=== PATIENT | female | born 1970 | race Caucasian/White ===

== ENCOUNTER 2018-08-27 12:53 | Outpatient (RCR) | payer MEDICAID, SELFPAY | END 2018-08-27 16:00 | disposition home or self-care (01) | LOC: PT.CARL 12:53 | PROVIDERS: Visit Provider Nurse Practitioner Family | DX: G44.209 Tension-type headache, unspecified, not intractable (principal) | CPT/HCPCS: 97163 ==

== ENCOUNTER → 2018-10-07 13:32 | Outpatient (CLI) | payer MEDICAID, SELFPAY ==
[2018-10-07 14:06] LABS: INR 1.01 (0.9-1.1); Prothrombin Time 10.4 seconds (9.4-11.8)
[2018-10-07 14:16] LABS: Basophils % 0.6 % (0.1-2.0); Eosinophils # 0.2 K/mm3 (0.0-0.4); Eosinophils % 3.2 % (0.1-12.0); Hematocrit 34.3 % (37.0-47.0); Hemoglobin 11.5 g/dL (12.2-16.2); Lymphocytes # 1.8 K/mm3 (0.7-4.5); Lymphocytes % 38.1 % (10-50); Mean Corpuscular HGB Conc 33.5 g/dL (31.8-35.4); Mean Corpuscular Hemoglobin 32.8 pg (27.0-31.2); Mean Corpuscular Volume 97.9 fl (81-99); Mean Platelet Volume 8.2 fl (7.4-10.4); Monocytes # 0.2 K/mm3 (0.1-1.0); Monocytes % 3.6 % (1.7-9.3); Neutrophils # 2.5 K/mm3 (1.8-7.8); Neutrophils % 54.4 % (37.0-80.0); Platelet Count 239 K/mm3 (142-424); Red Blood Count 3.51 M/mm3 (4.20-5.40); Red Cell Distribution Width 14.6 % (11.5-17.5); White Blood Count 4.6 K/mm3 (4.8-10.8)
[2018-10-07 15:16] LABS: Alanine Aminotransferase 38 U/L (12-78); Albumin Level 3.9 gm/dL (3.4-5.0); Albumin/Globulin Ratio 1.3 (1.1-1.8); Alkaline Phosphatase 64 U/L (46-116); Anion Gap 17.2 mEq/L (5-15); Aspartate Amino Transferase 24 U/L (15-37); Bilirubin,Total 0.2 mg/dL (0.2-1.0); Blood Urea Nitrogen 13 mg/dL (7-18); Carbon Dioxide 24 mmol/L (21.0-32.0); Chloride 103 mmol/L (98-107); Creatinine,Serum 0.68 mg/dL (0.55-1.02); Estimated Glomerular Filt Rate 93 ml/min (>60); GFR (African American) 113 ML/MIN (>60); Glucose 127 mg/dL (74-106); Potassium 4.2 mmoL/L (3.5-5.1); Sodium 140 mmol/L (136-145); Total Protein,Serum 6.9 gm/dL (6.4-8.2)
[2018-10-08 06:15] LABS: Hep A Ab, IgM Negative (Negative); Hepatitis B Core Antibody IgM Positive (Negative); Hepatitis B Surface Antigen Negative (Negative)
[2018-10-08 09:43] LABS: Hepatitis C Antibody <0.1 s/co ratio (0.0-0.9)
== END ==
PROVIDERS: Visit Provider Surgery
DX: K80.20 Calculus of gallbladder without cholecystitis without obstruction (principal)
CPT/HCPCS: 36415; 80053; 80074; 85025; 85610

== ENCOUNTER → 2019-05-19 12:17 | Outpatient (CLI) | payer MEDICAID, SELFPAY ==
--- NOTE | 2019-05-19 12:25 | CT_ITS ---
PROCEDURE: CT HEAD/BRAIN WO CON CLINICAL INDICATION: MIGRAINE W/O AURA Increasing frequency of headaches COMPARISON: No exams were available for comparison TECHNIQUE: Axial images obtained. All CT scans at the facility use one or more dose reduction, viz: automated exposure control, ma/kV adjustment per patient size (including targeted exams where dose is matched to indication, i.e. head), or iterative reconstruction technique. FINDINGS: No midline shift, mass effect, intracranial hemorrhage, hydrocephalus, or extra-axial fluid collection is evident. The calvarium has an unremarkable appearance. No mastoid effusion. No sinus air-fluid level. IMPRESSION: No acute intracranial finding Dictated by: Zaire Isbell MD 05/19/2019 12:53 Electronically signed by Zaire Isbell MD in [place] 05/19/2019 12:53
== END ==
PROVIDERS: PCP Nurse Practitioner; Visit Provider Nurse Practitioner
DX: G43.009 Migraine without aura, not intractable, without status migrainosus (principal)
CPT/HCPCS: 70450

== ENCOUNTER 2019-09-16 17:55 | Inpatient (IN) ==
[2019-09-16 18:29] LABS: Basophils % 0.1 % (0.1-2.0); Eosinophils # 0.1 K/mm3 (0.0-0.4); Eosinophils % 0.6 % (0.1-12.0); Hematocrit 34.1 % (37.0-47.0); Hemoglobin 11.3 g/dL (12.2-16.2); Lymphocytes # 0.9 K/mm3 (0.7-4.5); Lymphocytes % 7.6 % (10-50); Mean Corpuscular HGB Conc 33.1 g/dL (31.8-35.4); Mean Corpuscular Volume 99.3 fl (81-99); Mean Platelet Volume 8.5 fl (7.4-10.4); Monocytes # 0.3 K/mm3 (0.1-1.0); Monocytes % 2.3 % (1.7-9.3); Neutrophils # 10.7 K/mm3 (1.8-7.8); Neutrophils % 89.4 % (37.0-80.0); Platelet Count 297 K/mm3 (142-424); Red Blood Count 3.43 M/mm3 (4.20-5.40); Red Cell Distribution Width 14.5 % (11.5-17.5)
[2019-09-16 18:38] LABS: Albumin Level 4.3 g/dl (3.5-5.0); Albumin/Globulin Ratio 1.3 (1.1-1.8); Anion Gap 15.5 mEq/L (5-15); Bilirubin,Total 0.4 mg/dl (0.2-1.3); Calcium 9.5 mg/dl (8.4-10.2); Globulin 3.4 g/dL (1.3-3.2); Total Protein,Serum 7.7 g/dl (6.3-8.2)
--- NOTE | 2019-09-16 19:02 | Emergency Department Note ---
ED Disposition Clinical Impression: Pneumonia Qualifiers: Pneumonia type: due to unspecified organism Disposition: Admitted As Inpatient Condition on Discharge: Good - Critical Care Critical Care Time: No Attestation: On 09/16/19, the high probability of a clinically significant, sudden or life threatening deterioration of the following system(s) required my full and direct attention, intervention and personal management. The time I documented below is in addition to time spent performing reported procedures but includes the following listed in this critical care notation. Medical Decision Making - Peyman Inquiry Pt receiving controlled substance: No Peyman was queried for this patient: No Vital Signs: 09/16/19 17:57 09/16/19 19:11 09/16/19 19:57 Temperature 98.3 F Temperature Source Oral Pulse Rate 101 H Pulse Rate [Radial] 122 H 108 H Respiratory Rate 20 16 Blood Pressure 118/66 Blood Pressure [Right Arm] 130/89 107/65 L Blood Pressure Mean [Right Arm] 102 79 Blood Pressure Source Automatic Cuff Blood Pressure Source [Right Arm] Automatic Cuff Automatic Cuff Blood Pressure Position Sitting Blood Pressure Position [Right Arm] Sitting Sitting 02 Sat by Pulse Oximetry 89 L 92 L Oxygen Delivery Method Room Air Nasal Cannula Nasal Cannula Oxygen Flow Rate (LPM) 2 2 09/16/19 20:00 Temperature Temperature Source Pulse Rate Pulse Rate [Radial] Respiratory Rate Blood Pressure Blood Pressure [Right Arm] Blood Pressure Mean [Right Arm] Blood Pressure Source Blood Pressure Source [Right Arm] Blood Pressure Position Blood Pressure Position [Right Arm] 02 Sat by Pulse Oximetry Oxygen Delivery Method Nasal Cannula Oxygen Flow Rate (LPM) 2 - Lab Data Lab Results 09/16/19 18:10: WBC 12.0 H, RBC 3.43 L, Hgb 11.3 L, Hct 34.1 L, MCV 99.3 H, MCH 32.9 H, MCHC 33.1, RDW 14.5, Plt Count 297, MPV 8.5, Neut % (Auto) 89.4 H, Lymph % (Auto) 7.6 L, [place] % (Auto) 2.3, Eos % (Auto) 0.6, Baso % (Auto) 0.1, Neut # (Auto) 10.7 H, Lymph # (Auto) 0.9, [place] # (Auto) 0.3, Eos # (Auto) 0.1, Baso # (Auto) 0.0, Total Counted 100, Neutrophils % (Manual) 84 H, Lymphocytes % (Manual) 13, Monocytes % (Manual) 3, Platelet Estimate Normal, RBC Morphology Normal 09/16/19 18:10: Sodium 139, Potassium 3.5, Chloride 109 H, Carbon Dioxide 18 L, Anion Gap 15.5 H, BUN 15, Creatinine 0.70, Estimated Creat Clear 128, Estimated GFR 90, Est GFR ( Amer) 109 D, Glucose 142 H, Calcium 9.5, Total Bilirubin 0.4, AST 41 H, ALT 66, Alkaline Phosphatase 97, Total Protein 7.7, Albumin 4.3, Globulin 3.4 H, Albumin/Globulin Ratio 1.3 09/16/19 18:10: Lactate 1.6 Result diagrams: 09/18/19 06:00 09/18/19 06:00 Orders (Tests/Meds): ED MEDICATIONS Generic Name Dose Route Start Last Admin Trade Name Freq PRN Reason Stop Dose Admin Acetaminophen 650 mg 09/16/19 19:53 09/18/19 00:18 Acetaminophen 325mg Tab PO 10/16/19 19:52 650 mg Q4HP PRN Administration As Needed for Fever or Pain Albuterol Sulfate 1 - 2 puffs 09/16/19 20:33 09/18/19 18:02 Proventil-Hfa 90mcg/Puff Inhaler 10/16/19 20:32 2 puffs Q4HP PRN Administration Shortness Of Breath Or Wheezing Albuterol/Ipratropium 3 ml 09/16/19 20:39 Duoneb 3ml [facility] 10/16/19 20:38 Q1HP PRN soa Albuterol/Ipratropium 3 ml 09/17/19 00:00 09/18/19 18:40 Duoneb 3ml [facility] 10/17/19 00:00 3 ml Q6RT MENG Administration Amitriptyline HCl 75 mg 09/17/19 21:00 09/17/19 20:44 Elavil 50mg Tablet PO 10/17/19 20:59 75 mg HS MENG Administration Amlodipine Besylate 5 mg 09/17/19 09:00 09/18/19 08:33 Norvasc 5mg Tablet PO 10/17/19 08:59 5 mg DAILY MENG Administration Fluoxetine HCl 60 mg 09/17/19 09:00 09/18/19 08:33 Prozac 20mg Capsule PO 10/17/19 08:59 60 mg DAILY MENG Administration Gabapentin 600 mg 09/16/19 21:00 09/18/19 13:18 Neurontin 600mg Tablet PO 10/16/19 20:59 600 mg TID MENG Administration Sodium Chloride 1,000 mls @ 50 mls/hr 09/16/19 19:53 09/18/19 14:46 Sod Chlor 0.9% 1000ml Bag IV 10/16/19 19:52 50 mls/hr .Q20H MENG Administration Azithromycin 500 mg/ Sodium 250 mls @ 250 mls/hr 09/17/19 21:00 09/17/19 21:48 Chloride IV 10/01/19 20:59 250 mls/hr Q24H MENG Administration Protocol Ceftriaxone Sodium 1 gm/ 50 mls @ 100 mls/hr 09/17/19 20:00 09/17/19 20:43 Sodium Chloride IV 10/01/19 19:59 100 mls/hr Q24H MENG Administration Protocol Ibuprofen 400 mg 09/16/19 19:53 09/18/19 17:59 Motrin 400mg Tablet PO 10/16/19 19:52 400 mg Q6HP PRN Administration Mild Pain Nystatin 500,000 unit 09/17/19 09:00 09/18/19 17:46 Nystatin Susp 500,000 Units/5ml Udc PO 10/17/19 08:59 500,000 unit QID MENG Administration Ondansetron HCl 4 mg 09/17/19 13:41 09/18/19 13:31 Zofran 4mg/2ml Vial IV 10/17/19 13:40 4 mg Q6HP PRN Administration Nausea Pantoprazole Sodium 40 mg 09/17/19 21:00 09/17/19 20:45 Protonix 40mg Tablet PO 10/17/19 20:59 40 mg HS MENG Administration Propranolol HCl 40 mg 09/17/19 09:00 09/18/19 08:34 Inderal 20mg Tablet PO 10/17/19 08:59 40 mg BID MENG Administration Sodium Chloride 3 ml 09/17/19 14:21 Sodium Chloride 3% 15ml Neb IH 10/17/19 14:20 ONCE PRN INDUCE SPUTUM COLLECTION Sodium Chloride 10 ml 09/18/19 13:53 Saline Flush 10ml Syringe IV 10/18/19 13:52 NEEDED PRN Maintain IV Site Tetracycl/Hydrocort/Nystatin/Diphen 15 ml 09/17/19 09:00 09/18/19 17:46 Magic Mouthwash;240ml [place] PO 10/17/19 08:59 15 ml QID MENG Administration Topiramate 50 mg 09/17/19 09:00 09/18/19 08:33 Topamax 25mg Tablet PO 10/17/19 08:59 50 mg DAILY MENG Administration Discontinued Medications Generic Name Dose Route Start Last Admin Trade Name Freq PRN Reason Stop Dose Admin Amitriptyline HCl 75 mg 09/16/19 23:50 Elavil 25mg Tablet PO 10/16/19 23:49 HSP PRN CHEST PAIN Ceftriaxone Sodium 1 gm/ 50 mls @ 100 mls/hr 09/16/19 19:53 09/16/19 20:53 Sodium Chloride IV 09/30/19 19:52 Not Given Q24H MENG Protocol Azithromycin 500 mg/ Sodium 250 mls @ 250 mls/hr 09/16/19 19:53 09/16/19 21:15 Chloride IV 09/30/19 19:52 250 mls/hr Q24H MENG Administration Protocol Ceftriaxone Sodium 1 gm/ 50 mls @ 100 mls/hr 09/16/19 20:00 09/16/19 20:40 Sodium Chloride IV 09/30/19 19:59 100 mls/hr Q24H MENG Administration Protocol Miscellaneous 1 unit 09/16/19 19:53 09/16/19 22:58 Aerochamber/Optihaler MC 09/16/19 19:54 Not Given ONCE ONE ORDERS Category Date Time Status Blood Culture Stat Micro 09/16/19 18:10 Results General Adult HPI - General Chief complaint: Shortness of Breath/Dyspnea Stated complaint: Blisters in mouth, SOA Time Seen by Provider: 09/16/19 19:00 Mode of Arrival: Ambulatory Source of Information: Patient Limitations: No Limitations Description of Symptoms (Recalled from ER Triage Doc. by RN): states she was here the other day and was diagnosed with Pneumonia. States she is not getting better and has even started getting blisters in the back of her throat. - History of Present Illness HPI narrative: 48-year-old female. She was in the emergency room 2 days ago and was diagnosed with pneumonia, received Rocephin and Zithromax and she was discharged with Levaquin as antibiotic p.o. that she is not getting any better. Shortness of breath with minimal exertion. History of asthma. Also she is a chronic smoker 1 pack/day. Coughing continuously. Also she has a temperature between 97 and 101. Denied any nausea or vomiting or any chest pain. Main complaints of cough and shortness of breath with minimal exertion. Dr. Hendricks saw her in the emergency room 2 days ago and suggested to admit her but she said she will try outpatient treatment but now she is not feeling any better. Onset (ago): day(s) Associated symptoms: fever/chills, headaches, loss of appetite, malaise, shortness of breath, weakness - Related Data Home Medications Medication Instructions Recorded Confirmed propranolol 80 mg capsule,extended 80 mg PO DAILY 01/16/18 09/17/19 release 24 hr Ipratropium/Albuterol Sulfate 2 sprays INHALATION BID 09/10/18 09/17/19 [Combivent Respimat Inh] Omeprazole [Omeprazole 20mg 20 mg PO DAILY 09/10/18 09/17/19 Capsule] gabapentin 600 mg tablet 600 mg PO TID 09/20/18 09/17/19 Albuterol Sulfate [Albuterol HFA 1 - 2 puffs IH Q4-6H PRN 09/16/19 09/16/19 Inhaler] Almotriptan Malate 12.5 mg PO DIRECTED 09/16/19 09/16/19 Amitriptyline HCl 75 mg PO HS 09/16/19 09/16/19 Topiramate 1 tab PO DAILY 09/16/19 09/16/19 levoFLOXacin [Levaquin 500mg 500 mg PO DAILY 09/16/19 09/16/19 tab] Amlodipine Besylate [Amlodipine 5 mg PO DAILY 09/17/19 09/17/19 5mg tab] Fluoxetine HCl 60 mg PO DAILY 09/17/19 09/17/19 Previous Rx's Medication Instructions Recorded predniSONE [Prednisone 20mg 40 mg PO DAILY 3 Days #12 tab 09/17/19 Tab] Cefdinir [Omnicef 300mg Capsule] 600 mg PO DAILY 6 Days #12 cap 09/18/19 Nystatin [Nystatin Susp 500,000 500,000 unit PO QID 5 Days #120 ml 09/18/19 Units/5mL Udc] Allergies Allergy/AdvReac Type Severity Reaction Status Date / Time levofloxacin [From Levaquin] AdvReac Intermediate mouth sores Verified 09/17/19 07:52 sumatriptan [From Imitrex] AdvReac Mild Vomiting Verified 09/16/19 21:04 [facility] History - Hepatitis A Screen Drug use history?: No High risk sexual behaviors?: No History of sexually transmitted infection?: No Currently employed?: No Childcare worker?: No Do you have indoor plumbing?: Yes Do you have electricity?: Yes Attestation statement:: This patient has been screened for Hepatitis A risk factors. Medical History: Reports:: Asthma, Depression, Gastroesophageal Reflux Disease(GERD), Hepatitis, Hypertension Denies:: Cancer, Diabetes Mellitus Type 1, Diabetes Mellitus Type 2, Internal Pacemaker, MRSA, Seizures Other Medical History: Denies: Blood Transfusion Reaction Other Surgeries: Yes: Cholecystectomy, Hysterectomy-Total, Tubal Ligation. No: Pacemaker Amputation: No Fractures: No - Social History Educational Level: Completed High School Smoking Status: Current every day smoker Tobacco Type: cigarettes # Packs/Day (cigarettes): 1 Alcohol Intake: never Substance Use Type: denies use Occupational Status: other Housing: house - Psychiatric History Pschychiatric History:: Reports:: Depression Family Hx:: Diabetes, Cancer ROS Obtained: Yes All systems reviewed & no additional complaints - Constitutional Constitutional: Reports system reviewed and no additional complaints, except as docu, Reports body ache, Reports chills, Reports fatigue, Reports fever(s), Reports lethargy - Eyes Eyes: Reports system reviewed and no additional complaints, except as docu - ENT Ears, Nose, Mouth, and Throat: Reports system reviewed and no additional complaints, except as docu - Cardiovascular Cardiovascular: Reports system reviewed and no additional complaints, except as docu - Respiratory Respiratory: Yes system reviewed and no additional complaints, except as docu, Yes cough, Yes dyspnea, Yes dyspnea on exertion - Gastrointestinal Gastrointestingal: Reports: system reviewed and no additional complaints, except as docu - Genitourinary Male Genitourinary: Reports system reviewed and no additional complaints, except as docu Female Genitourinary: Reports system reviewed and no additional complaints, except as docu - Musculoskeletal Musculoskeletal: Reports system reviewed and no additional complaints, except as docu - Integumentary/Breasts Skin/Breast: Reports system reviewed and no additional complaints, except as docu - Neurologic Neurologic: Reports system reviewed and no additional complaints, except as docu - Endocrine Endocrine: Reports system reviewed and no additional complaints, except as docu - Hematologic/Lymphatic Henatologic/Lymphatic: Reports system reviewed and no additional complaints, except as docu - Allergic/Immunologic Allergic/Immunologic: Reports system reviewed and no additional complaints, except as docu Physical Exam - General General appearance: alert, in no apparent distress - Head Head exam: atraumatic, normocephalic, normal inspection - Eye Eye exam: Present: normal appearance, PERRL, EOMI - ENT ENT exam: Present: normal exam, normal oropharynx, mucous membranes moist, TM's normal bilaterally, normal external ear exam - Neck Neck exam: Present: normal inspection, full ROM, trachea midline. Absent: meningismus, lymphadenopathy - Chest Chest inspection: Present: normal inspection, symmetric chest wall rise. Absent: tenderness - Respiratory Respiratory exam: Present: normal lung sounds bilaterally, wheezes. Absent: respiratory distress - Cardiovascular Cardiovascular exam: Present: regular rate, normal rhythm. Absent: JVD - Abdominal Exam Abdominal exam: Present: soft, normal bowel sounds. Absent: distention, tenderness, guarding - Extremities Exam Extremities exam: Present: normal inspection, full ROM, normal capillary refill. Absent: calf tenderness - Back Exam Back exam: Present: normal inspection. Absent: tenderness - Neurological Exam Neurological exam: Present: alert, oriented X3 - Psychiatric Psychiatric exam: Present: normal affect, normal mood - Skin Skin exam: Present: warm, dry, intact, normal color - Lymphatic Lymphatic Findings: no adenopathy
[2019-09-16 19:21] LABS: Lymphocytes % 13 % (10-50); Monocytes % 3 % (2-9); Neutrophils % 84 % (42-76); RBC Morphology Normal; Total Cells Counted 100
--- NOTE | 2019-09-17 07:18 | Pharmacy Consult Notes ---
[facility] Pharmacy VTE Monitoring - Patient Demographics Admission date: 09/16/19 Report Date: 09/17/19 Time: 07:17 Allergies/Adverse Reactions: Patient Allergies levofloxacin [From Levaquin] Allergy (Intermediate, Verified 09/16/19 21:04) mouth sores sumatriptan [From Imitrex] Adverse Reaction (Mild, Verified 09/16/19 21:04) Vomiting Height: 1.55 m Weight: 81.703 kg Patient Problems: Current Active Problems Pneumonia (Acute) - VTE Risk Labs: VTE Related Lab Results Hgb 11.3 g/dL (12.2-16.2) L 09/16/19 18:10 Hct 34.1 % (37.0-47.0) L 09/16/19 18:10 Plt Count 297 K/mm3 (142-424) 09/16/19 18:10 BUN 15 mg/dl (7-17) 09/16/19 18:10 Creatinine 0.70 mg/dl (0.52-1.04) 09/16/19 18:10 Estimated Creat Clear 128 mL/min (50-200) 09/16/19 18:10 Was VTE Risk Assessment Performed: Yes VTE Score: 6 VTE Risk Level: Moderate Risk - Prophylaxis VTE Prophylaxis Ordered?: Yes Types of VTE Prophylaxis: TEDS Knee High Location of Applied Device: Bilateral Lower Extremeties
[2019-09-17 07:40] LABS: Basophils % 0.1 % (0.1-2.0); Eosinophils % 0.5 % (0.1-12.0); Hematocrit 30.2 % (37.0-47.0); Lymphocytes # 1.3 K/mm3 (0.7-4.5); Lymphocytes % 15.7 % (10-50); Mean Corpuscular HGB Conc 32.1 g/dL (31.8-35.4); Mean Corpuscular Volume 99.3 fl (81-99); Mean Platelet Volume 8.7 fl (7.4-10.4); Monocytes # 0.3 K/mm3 (0.1-1.0); Monocytes % 2.9 % (1.7-9.3); Neutrophils # 6.9 K/mm3 (1.8-7.8); Neutrophils % 80.7 % (37.0-80.0); Platelet Count 255 K/mm3 (142-424); Red Blood Count 3.04 M/mm3 (4.20-5.40); Red Cell Distribution Width 14.3 % (11.5-17.5); White Blood Count 8.5 K/mm3 (4.8-10.8)
[2019-09-17 07:48] LABS: Anion Gap 12.5 mEq/L (5-15)
--- NOTE | 2019-09-17 07:48 | History & Physical Report ---
*Admission Date: 09/16/19 *Chief complaint: Cough/congestion *History of present illness: 48-year-old white female with history of major depression, migraine headaches and significant smoking history, who came to the emergency department early last week with a chief complaint of cough and congestion, diagnosed with acute bronchitis and given levofloxacin which has not helped over the last couple of days. Came back to the emergency department late last night, found to have relative hypoxia. Found to have cough and congestion and infiltrate on chest x- ray, admitted to hospital with failure of outpatient therapy. [facility] History I have reviewed the patient's past medical history: Yes Medical History: Reports:: Asthma, Depression, Gastroesophageal Reflux Disease(GERD), Hepatitis, Hypertension Denies:: Cancer, Diabetes Mellitus Type 1, Diabetes Mellitus Type 2, Internal Pacemaker, MRSA, Seizures *Have you ever received a pneumonia vaccine?: No *Have you received a flu vaccine this season?: Yes Other Medical History: Denies: Blood Transfusion Reaction Laterality Cases: Bilateral: Tonsillectomy Other Surgeries: Yes: Cholecystectomy, Hysterectomy-Total, Tubal Ligation. No: Pacemaker Amputation: No Fractures: No - *Social History Educational Level: Completed High School Smoking Status: Current every day smoker Tobacco Type: cigarettes # Packs/Day (cigarettes): 1 Alcohol Intake: current Alcohol Intake Frequency:: other Substance Use Type: marijuana *Occupational Status:: unemployed Housing: other Household Members: other *Travel in the last 8 weeks: None - Psychiatric History Pschychiatric History:: Reports:: Depression Family Hx:: Diabetes, Cancer Review of Systems - Review of Systems Review of systems:: pertinent systems reviewed and negative unless documented below Pulmonary symptoms noted. Otherwise 10 point review of systems negative with the exception of some oral mucosal lesions that she attributes to levofloxacin Meds Home Medications Medication Instructions Recorded Confirmed Type propranolol 80 mg capsule,extended 80 mg PO DAILY 01/16/18 09/17/19 History release 24 hr Ipratropium/Albuterol Sulfate 2 puff PO QIDP PRN 09/10/18 09/17/19 History [Combivent Respimat Inh] Omeprazole [Omeprazole 20mg 20 mg PO DIRECTED 09/10/18 09/16/19 History Capsule] gabapentin 600 mg tablet 600 mg PO QID 09/20/18 09/17/19 History Albuterol Sulfate [Albuterol HFA 1 - 2 puffs IH Q4-6H PRN 09/16/19 09/16/19 History Inhaler] Almotriptan Malate 12.5 mg PO DIRECTED 09/16/19 09/16/19 History Amitriptyline HCl 75 mg PO HS 09/16/19 09/16/19 History Topiramate 1 tab PO DAILY 09/16/19 09/16/19 History levoFLOXacin [Levaquin 500mg 500 mg PO DAILY 09/16/19 09/16/19 History tab] predniSONE [Prednisone 20mg 20 mg PO BID 09/16/19 09/16/19 History Tab] Amlodipine Besylate [Amlodipine 5 mg PO DAILY 09/17/19 09/17/19 History 5mg tab] Fluoxetine HCl 60 mg PO DAILY 09/17/19 09/17/19 History Allergies Allergy/AdvReac Type Severity Reaction Status Date / Time levofloxacin [From Levaquin] Allergy Intermediate mouth sores Verified 09/16/19 21:04 sumatriptan [From Imitrex] AdvReac Mild Vomiting Verified 09/16/19 21:04 Exam Vital signs and Labs for Last 24 Hours: Temp Pulse Resp BP Pulse Ox 98.9 F 105 H 16 130/77 91 L 09/17/19 07:05 09/17/19 07:05 09/17/19 07:05 09/17/19 07:05 09/17/19 07:05 Laboratory Results - last 24 hr 09/16/19 18:10: WBC 12.0 H, RBC 3.43 L, Hgb 11.3 L, Hct 34.1 L, MCV 99.3 H, MCH 32.9 H, MCHC 33.1, RDW 14.5, Plt Count 297, MPV 8.5, Neut % (Auto) 89.4 H, Lymph % (Auto) 7.6 L, [place] % (Auto) 2.3, Eos % (Auto) 0.6, Baso % (Auto) 0.1, Neut # (Auto) 10.7 H, Lymph # (Auto) 0.9, [place] # (Auto) 0.3, Eos # (Auto) 0.1, Baso # (Auto) 0.0, Total Counted 100, Neutrophils % (Manual) 84 H, Lymphocytes % (Manual) 13, Monocytes % (Manual) 3, Platelet Estimate Normal, RBC Morphology Normal 09/16/19 18:10: Sodium 139, Potassium 3.5, Chloride 109 H, Carbon Dioxide 18 L, Anion Gap 15.5 H, BUN 15, Creatinine 0.70, Estimated Creat Clear 128, Estimated GFR 90, Est GFR ( Amer) 109 D, Glucose 142 H, Calcium 9.5, Total Bilirubin 0.4, AST 41 H, ALT 66, Alkaline Phosphatase 97, Total Protein 7.7, Albumin 4.3, Globulin 3.4 H, Albumin/Globulin Ratio 1.3 09/16/19 18:10: Lactate 1.6 09/17/19 07:12: WBC 8.5 D, RBC 3.04 L, Hct 30.2 L, MCV 99.3 H, MCH 31.9 H, MCHC 32.1, RDW 14.3, Plt Count 255, MPV 8.7, Neut % (Auto) 80.7 H, Lymph % (Auto) 15.7, [place] % (Auto) 2.9, Eos % (Auto) 0.5, Baso % (Auto) 0.1, Neut # (Auto) 6.9, Lymph # (Auto) 1.3, [place] # (Auto) 0.3, Eos # (Auto) 0.0, Baso # (Auto) 0.0 I & O for Last 24 hours: Intake & Output 09/14/19 09/15/19 09/16/19 09/17/19 11:59 11:59 11:59 11:59 Intake Total 906 / 906 Output Total 300 / 300 Balance 606 / 606 Weight 180 lb 2 oz Narrative: Patient has minimal stomatitis in the right buccal mucosa. Lungs have rhonchi and crackles in the right middle and lower lung field. Heart rate regular. Abdomen soft, nontender, no clubbing or edema. Neurologic exam intact. No rash or joint swelling or discomfort. ENT exam otherwise clear except for the stomatitis issues. Assessment and Plan (1) Stomatitis Current visit: Yes Status: Acute Category: Medical Code(s): K12.1 - Other forms of stomatitis Start Magic mouthwash equivalent. Levofloxacin held. (2) Hypoxia Current visit: Yes Status: Acute Category: Medical Code(s): R09.02 - Hypoxemia Continue current oxygen therapy, pulmonary toilet. (3) Pneumonia Current visit: Yes Status: Acute Category: Medical Code(s): J18.9 - Pneumonia, unspecified organism Agree with admission given failed outpatient therapy. Await sputum and blood cultures. Check labs tomorrow
[2019-09-17 08:42] LABS: Hemoglobin 9.7 g/dL (12.2-16.2)
--- NOTE | 2019-09-17 21:31 | Discharge Summary ---
General - General Admission date:: 09/16/19 Discharge date: 09/19/19 HPI HPI: 48-year-old white female with history of major depression, migraine headaches and significant smoking history, who came to the emergency department early last week with a chief complaint of cough and congestion, diagnosed with acute bronchitis and given levofloxacin which has not helped over the last couple of days. Came back to the emergency department late last night, found to have relative hypoxia. Found to have cough and congestion and infiltrate on chest x- ray, admitted to hospital with failure of outpatient therapy. Hospital Course Hospital Course: 48-year-old female with history of COPD, tobacco use, admitted due to failed outpatient therapy for pneumonia. New oxygen requirement meeting acute hypoxemic respiratory failure. Started on IV antibiotics with gradual improvement during her admission. Continue to require oxygen. Transition to oral antibiotics to complete a 10-day course. We will go home with oxygen, have set this up with [facility]. Recommend she follow-up with her primary care within a week for reevaluation. Patient has been afebrile for 24 hours. Hemodynamically stable. Tolerating good p.o. intake and normal output. Additionally, patient to take nystatin swish and swallow due to concern for oral thrush after antibiotics administered prior to admission. Discussed smoking cessation during admission, recommended she take this up with her primary care in the outpatient setting to help her get off of nicotine products. Would likely benefit as well from consideration of daily inhaler (combo or individual LABA, LAMA, ICS) Objective Vital signs: Temp Pulse Resp BP Pulse Ox 100.1 F H 91 H 20 101/55 L 92 L 09/17/19 20:00 09/17/19 20:00 09/17/19 20:00 09/17/19 20:00 09/17/19 20:00 Narrative: - Constitutional no acute distress, obese - *Routine HEENT Exam Head: Present: normocephalic Eye: Present: EOMI, PERRL ENT: Present: mucous membranes moist - *Routine Neck Exam Present: supple. Absent: lymphadenopathy - *Routine Respiratory Exam Present: crackles (Right posterior lung field), with minimal wheeze. Absent: accessory muscle use, rhonchi Comments: Good air movement bilaterally - *Routine Cardiovascular Exam Present: RRR - *Routine Extremities Exam Absent: cyanosis, clubbing, edema - *Routine Neurological Exam Present: alert, oriented X3 Results Labs on day of discharge: Labs from last 24 hours 09/17/19 09/17/19 07:12 07:12 WBC 8.5 D RBC 3.04 L Hgb 9.7 L D Hct 30.2 L MCV 99.3 H MCH 31.9 H MCHC 32.1 RDW 14.3 Plt Count 255 MPV 8.7 Neut % (Auto) 80.7 H Lymph % (Auto) 15.7 [place] % (Auto) 2.9 Eos % (Auto) 0.5 Baso % (Auto) 0.1 Neut # (Auto) 6.9 Lymph # (Auto) 1.3 [place] # (Auto) 0.3 Eos # (Auto) 0.0 Baso # (Auto) 0.0 Sodium 142 Potassium 3.5 Chloride 110 H Carbon Dioxide 23 D Anion Gap 12.5 BUN 14 Creatinine 0.60 Estimated Creat Clear 150 Estimated GFR 107 Est GFR ( Amer) 130 Glucose 108 H D Calcium 9.0 DS: Diagnosis - Discharge Diagnosis (1) Stomatitis Status: Acute (2) Hypoxia Status: Acute (3) Pneumonia Status: Acute Discharge Plan - Patient Discharge Instructions ACTIVITY: Continue current activity DIET: continue same diet Patient Instructions: Nicotine Addiction (Alternative Therapy), Pneumonia- Adult, Nicotine Addiction, DI for Hypoxia - Follow up Plan Follow up with: Alessandro Dobbins MD [Staff Physician] - 09/23/19 2:00 pm Disposition: Home, Self-[facility] Medications: Home Medications Medication Instructions Recorded Confirmed Type propranolol 80 mg capsule,extended 80 mg PO DAILY 01/16/18 09/17/19 History release 24 hr Ipratropium/Albuterol Sulfate 2 sprays INHALATION BID 09/10/18 09/17/19 History [Combivent Respimat Inh] Omeprazole [Omeprazole 20mg 20 mg PO DAILY 09/10/18 09/17/19 History Capsule] gabapentin 600 mg tablet 600 mg PO TID 09/20/18 09/17/19 History Albuterol Sulfate [Albuterol HFA 1 - 2 puffs IH Q4-6H PRN 09/16/19 09/16/19 History Inhaler] Almotriptan Malate 12.5 mg PO DIRECTED 09/16/19 09/16/19 History Amitriptyline HCl 75 mg PO HS 09/16/19 09/16/19 History Topiramate 1 tab PO DAILY 09/16/19 09/16/19 History Amlodipine Besylate [Amlodipine 5 mg PO DAILY 09/17/19 09/17/19 History 5mg tab] Fluoxetine HCl 60 mg PO DAILY 09/17/19 09/17/19 History predniSONE [Prednisone 20mg 40 mg PO DAILY 3 Days #12 tab 09/17/19 Rx Tab] Cefdinir [Omnicef 300mg Capsule] 600 mg PO DAILY 6 Days #12 cap 09/18/19 Rx Nystatin [Nystatin Susp 500,000 500,000 unit PO QID 5 Days #120 ml 09/18/19 Rx Units/5mL Udc] Prescriptions/Medication Reconciliation: New Cefdinir [Omnicef 300mg Capsule] 600 mg PO DAILY 6 Days #12 cap Nystatin [Nystatin Susp 500,000 Units/5mL Udc] 500,000 unit PO QID 5 Days #120 ml Continued propranolol 80 mg capsule,extended release 24 hr 80 mg PO DAILY gabapentin 600 mg tablet 600 mg PO TID Ipratropium/Albuterol Sulfate [Combivent Respimat Inh] 2 sprays INHALATION BID Almotriptan Malate 12.5 mg PO DIRECTED Fluoxetine HCl 60 mg PO DAILY Omeprazole [Omeprazole 20mg Capsule] 20 mg PO DAILY Albuterol Sulfate [Albuterol HFA Inhaler] 1 - 2 puffs IH Q4-6H PRN PRN Reason: Shortness Of Breath Or Wheezing Topiramate 1 tab PO DAILY Amitriptyline HCl 75 mg PO HS Amlodipine Besylate [Amlodipine 5mg tab] 5 mg PO DAILY Changed predniSONE [Prednisone 20mg Tab] 40 mg PO DAILY 3 Days #12 tab Discontinued levoFLOXacin [Levaquin 500mg tab] 500 mg PO DAILY - Problem Reconciliation Problems Reviewed?: Yes
[2019-09-18 06:45] LABS: Basophils % 0.2 % (0.1-2.0); Eosinophils # 0.4 K/mm3 (0.0-0.4); Eosinophils % 4.3 % (0.1-12.0); Hematocrit 30.4 % (37.0-47.0); Hemoglobin 9.5 g/dL (12.2-16.2); Lymphocytes # 1.8 K/mm3 (0.7-4.5); Lymphocytes % 21.3 % (10-50); Mean Corpuscular HGB Conc 31.2 g/dL (31.8-35.4); Mean Corpuscular Volume 103.1 fl (81-99); Mean Platelet Volume 8.4 fl (7.4-10.4); Monocytes # 0.2 K/mm3 (0.1-1.0); Monocytes % 2.7 % (1.7-9.3); Neutrophils # 6.2 K/mm3 (1.8-7.8); Neutrophils % 71.5 % (37.0-80.0); Platelet Count 272 K/mm3 (142-424); Red Blood Count 2.95 M/mm3 (4.20-5.40); Red Cell Distribution Width 14.5 % (11.5-17.5); White Blood Count 8.6 K/mm3 (4.8-10.8)
[2019-09-18 06:52] LABS: Calcium 8.5 mg/dl (8.4-10.2)
[2019-09-18 08:51] LABS: Coronavirus 229E Not Detected (NotDetected); Coronavirus NL63 Not Detected (NotDetected); Coronavirus OC43 Not Detected (NotDetected); Coronovirus HKU1,PCR Not Detected (NotDetected)
--- NOTE | 2019-09-18 09:28 | Progress Note ---
Internal Medicine - PN: Subj *Date: 09/18/19 *Time: 09:25 Interval history: Patient stable on supplemental oxygen this morning (does not wear oxygen at home). Had a fever overnight of 101. Fever responded well to Tylenol. No significant improvement in her respiratory status per her report. Denies nausea, vomiting, chest pain, diarrhea. Still requiring breathing treatments. Labs reviewed this morning, improvement in her white count. Given failure as an outpatient, have added respiratory panel to assess for viral etiology as well. States her mouth is improving though still has sores on her lips. Tolerating regular diet. Exam Vital signs and Labs for Last 24 Hours: Temp Pulse Resp BP Pulse Ox 98.1 F 84 20 113/74 89 L 09/18/19 07:56 09/18/19 07:56 09/18/19 07:56 09/18/19 07:56 09/18/19 07:56 Laboratory Results - last 24 hr 09/18/19 06:00: WBC 8.6, RBC 2.95 L, Hgb 9.5 L, Hct 30.4 L, MCV 103.1 H, MCH 32.1 H, MCHC 31.2 L, RDW 14.5, Plt Count 272, MPV 8.4, Neut % (Auto) 71.5, Lymph % (Auto) 21.3, [place] % (Auto) 2.7, Eos % (Auto) 4.3, Baso % (Auto) 0.2, Neut # (Auto) 6.2, Lymph # (Auto) 1.8, [place] # (Auto) 0.2, Eos # (Auto) 0.4, Baso # (Auto) 0.0 09/18/19 06:00: Sodium 139, Potassium 3.5, Chloride 107, Carbon Dioxide 22, BUN 14, Creatinine 0.80 D, Estimated Creat Clear 115, Estimated GFR 77, Est GFR ( Amer) 93 D, Glucose 99, Calcium 8.5 I & O for Last 24 hours: Intake & Output 09/15/19 09/16/19 09/17/19 09/18/19 23:59 23:59 23:59 23:59 Intake Total 1985 / 2105 1043 / 1043 Output Total 300 / 300 500 / 800 300 / 300 Balance -300 / -80 1486 / 1306 743 / 743 Weight 81.335 kg 81.703 kg 84.028 kg Microbiology Reports for the Last 24 Hours: Microbiology 09/17/19 12:55 Sputum - Expectorated Sputum Gram Stain - Final - Constitutional no acute distress, obese - *Routine HEENT Exam Head: Present: normocephalic Eye: Present: EOMI, PERRL ENT: Present: mucous membranes moist - *Routine Neck Exam Present: supple. Absent: lymphadenopathy - *Routine Respiratory Exam Present: crackles (Right posterior lung field). Absent: accessory muscle use, wheezes Comments: Good air movement bilaterally - *Routine Cardiovascular Exam Present: RRR - *Routine Extremities Exam Absent: cyanosis, clubbing, edema - *Routine Neurological Exam Present: alert, oriented X3 Assessment and Plan (1) Stomatitis Current visit: Yes Status: Acute Category: Medical Code(s): K12.1 - Other forms of stomatitis (2) Hypoxia Current visit: Yes Status: Acute Category: Medical Code(s): R09.02 - Hypoxemia (3) Pneumonia Current visit: Yes Status: Acute Qualifiers: Pneumonia type: due to unspecified organism Category: Medical Code(s): J18.9 - Pneumonia, unspecified organism Failed outpatient treatment. Tolerating cephalosporin and macrolide. Currently stable oxygen requirement. Will need home oxygen based on room air sat of 87% this morning. Continue with goal saturations greater 92% while awake, greater than 88% while asleep. Plan to transition oral antibiotics tomorrow. Continue steroids for total of 5 days. Have added respiratory panel given concern for possible viral etiology. Would benefit from an additional day of hospitalization due to fever last night, would like to see afebrile for 24 hours prior to discharge. (4) Class 2 obesity Current visit: Yes Status: Chronic Category: Medical Code(s): E66.9 - Obesity, unspecified complicates all aspects of her care. (5) Tobacco use disorder Current visit: Yes Status: Chronic Category: Medical Code(s): F17.200 - Nicotine dependence, unspecified, uncomplicated - Assessment and plan all Dx Assessment and Plan for all problems:: 8-year-old with pneumonia that failed outpatient therapy, acute hypoxemic respiratory failure. Continue treatment as per above. Continues to require inpatient management. Full code. Regular diet. Likely discharge tomorrow if remains afebrile
[2019-09-18 10:56] LABS: Anion Gap 13.5 mEq/L (5-15)
[2019-09-19 06:30] LABS: Basophils % 0.2 % (0.1-2.0); Eosinophils # 0.4 K/mm3 (0.0-0.4); Eosinophils % 5.7 % (0.1-12.0); Hematocrit 28.2 % (37.0-47.0); Hemoglobin 9.4 g/dL (12.2-16.2); Lymphocytes # 1.3 K/mm3 (0.7-4.5); Lymphocytes % 19.9 % (10-50); Mean Corpuscular HGB Conc 33.3 g/dL (31.8-35.4); Mean Platelet Volume 8.8 fl (7.4-10.4); Monocytes # 0.2 K/mm3 (0.1-1.0); Monocytes % 2.6 % (1.7-9.3); Neutrophils # 4.7 K/mm3 (1.8-7.8); Neutrophils % 71.6 % (37.0-80.0); Platelet Count 282 K/mm3 (142-424); Red Blood Count 2.88 M/mm3 (4.20-5.40); Red Cell Distribution Width 14.2 % (11.5-17.5); White Blood Count 6.5 K/mm3 (4.8-10.8)
[2019-09-19 06:38] LABS: Anion Gap 10.5 mEq/L (5-15); Calcium 8.4 mg/dl (8.4-10.2)
== END 2019-09-19 10:51 | disposition home or self-care (01) | DRG 189 ==
LOC: 2ND 17:55 → ER 17:55 → OBSVTOIN 20:17 → 2ND 20:17
PROVIDERS: ADMIT Internal Medicine Adolescent Medicine; ATTEND Internal Medicine Adolescent Medicine
DX: Z79.899 Other long term (current) drug therapy; Z88.8 Allergy status to other drugs, medicaments and biological substances; J45.909 Unspecified asthma, uncomplicated; J18.9 Pneumonia, unspecified organism; Z79.51 Long term (current) use of inhaled steroids; Z72.0 Tobacco use; B37.0 Candidal stomatitis; I10 Essential (primary) hypertension; Z88.1 Allergy status to other antibiotic agents; J96.01 Acute respiratory failure with hypoxia
CPT/HCPCS: 36415; 71020; 71046; 80048; 80053; 83605; 84484; 85007; 85025; 87040; 87070; 87205; 87275; 87276; 87430; 87486; 87581; 87633; 87798; 94640; 94761; 96365; 96366; 96375; 99284; J0456; J2405

== ENCOUNTER 2019-11-26 12:04 | Emergency (ER) | payer OTHER, SELFPAY ==
[2019-11-26 12:36] VITALS: BP 101/80; PULSE 90; RESP 16; TEMP 37.1; O2SAT 97; BMI 33.2
--- NOTE | 2019-11-26 12:43 | ECG_ITS ---
APPROVED REPORT Exam: Resting ECG HR:87 bpm ECG Measurements Heart Rate 87 AXES CA 176 P 68 QRSd 94 QRS 65 QT 416 T 78 QTc 500 <Conclusion> Normal sinus rhythm Incomplete right bundle branch block Prolonged QT Abnormal ECG Electronically signed by : Issac Canela, 11/26/2019 15:12:00
--- NOTE | 2019-11-26 13:02 | XR_ITS ---
Mixture PROCEDURE: XR CHEST PORTABLE CLINICAL HISTORY: syncope Cough, smoker COMPARISON: XR CHEST 2V from 09/14/2019 XR CHEST 2V from 09/16/2019 FINDINGS: The cardiomediastinal silhouette and pulmonary vascularity are within normal limits. Previously noted right lower lobe and left upper lobe pneumonia has cleared. There is some increased density in the left lung base but could be related to patchy infiltrate in the left lung base. Nodular opacities are present in the right infrahilar region and could be due to summation artifact pulmonary nodule. No acute bony abnormalities. IMPRESSION: Left basilar atelectasis or infiltrate. Previously noted right lower lobe and left upper lobe pneumonia has improved. Possible nodule in the right infrahilar region. Follow-up suggested Dictated by: Zaire Isbell MD 11/26/2019 13:54 Electronically signed by Zaire Isbell MD in [place] 11/26/2019 13:54
[2019-11-26 13:03] VITALS: BP 106/43; PULSE 90
--- NOTE | 2019-11-26 13:03 | CT_ITS ---
PROCEDURE: CT HEAD/BRAIN WO CON CLINICAL INDICATION: syncope COMPARISON: CT HEAD/BRAIN WO CON from 05/19/2019 TECHNIQUE: Axial images obtained. All CT scans at the facility use one or more dose reduction, viz: automated exposure control, ma/kV adjustment per patient size (including targeted exams where dose is matched to indication, i.e. head), or iterative reconstruction technique. FINDINGS: No midline shift, mass effect, intracranial hemorrhage, hydrocephalus, or extra-axial fluid collection is evident. The calvarium has an unremarkable appearance. No mastoid effusion. No sinus air-fluid level. IMPRESSION: No acute intracranial finding Dictated by: Zaire Isbell MD 11/26/2019 13:50 Electronically signed by Zaire Isbell MD in [place] 11/26/2019 13:50
[2019-11-26 13:04] VITALS: BP 115/56; PULSE 95
[2019-11-26 13:08] LABS: Basophils # 0.1 K/mm3 (0-0.2); Basophils % 0.6 % (0.1-2.0); Eosinophils # 0.2 K/mm3 (0.0-0.4); Eosinophils % 2.5 % (0.1-12.0); Hemoglobin 12.4 g/dL (12.2-16.2); Lymphocytes # 2.3 K/mm3 (0.7-4.5); Lymphocytes % 27.7 % (10-50); Mean Corpuscular HGB Conc 33.4 g/dL (31.8-35.4); Mean Corpuscular Hemoglobin 32.9 pg (27.0-31.2); Mean Corpuscular Volume 98.4 fl (81-99); Mean Platelet Volume 8.4 fl (7.4-10.4); Monocytes # 0.3 K/mm3 (0.1-1.0); Monocytes % 3.2 % (1.7-9.3); Neutrophils # 5.4 K/mm3 (1.8-7.8); Platelet Count 350 K/mm3 (142-424); Red Blood Count 3.76 M/mm3 (4.20-5.40); Red Cell Distribution Width 14.5 % (11.5-17.5); White Blood Count 8.2 K/mm3 (4.8-10.8)
[2019-11-26 13:18] LABS: Alanine Aminotransferase 19 U/L (12-78); Albumin Level 4.5 g/dl (3.5-5.0); Albumin/Globulin Ratio 1.6 (1.1-1.8); Alkaline Phosphatase 62 U/L (38-126); Anion Gap 14.9 mEq/L (5-15); Aspartate Amino Transferase 23 U/L (14-36); Bilirubin,Total 0.2 mg/dl (0.2-1.3); Blood Urea Nitrogen 17 mg/dl (7-17); Calcium 9.6 mg/dl (8.4-10.2); Carbon Dioxide 20 mmol/L (22.0-30.0); Chloride 110 mmol/L (98-107); Creatinine Clearance Estimated 76 mL/min (50-200); Estimated Glomerular Filt Rate 53 ml/min (>60); GFR (African American) 64 ML/MIN (>60); Globulin 2.9 g/dL (1.3-3.2); Glucose 106 mg/dl (74-100); Potassium 3.9 mmoL/L (3.5-5.1); Sodium 141 mmol/L (136-145); Total Protein,Serum 7.4 g/dl (6.3-8.2)
[2019-11-26 13:30] LABS: Troponin I < 0.01 ng/ml (0.00-0.034)
--- NOTE | 2019-11-26 14:20 | HMH.EDSYNC ---
ED Disposition Clinical Impression: Vasovagal syncope, Pneumonia Disposition: Home, Self-Care Condition on Discharge: Good Instructions: DI for Syncope in Adults (Fainting), DI for Syncope in Children (Fainting) Additional Instructions: Please self quarantine for 14 days given the fact you do have upper respiratory symptoms especially during the pandemic I am not stating that you have a diagnosis of COVID-19 however given the fact you are symptomatic we cannot rule that out this point if your symptoms start to progress or get worse please report back to the emergency department immediately for testing. Prescriptions: Cefdinir [Omnicef 300mg Capsule] 300 mg PO BID #20 cap Transmission Status: Pending to [facility] Azithromycin [Z-Noam 250mg Tab*] 250 mg PO UD DOSE PK #6 tab Transmission Status: Pending to [facility] Referrals: Rhianna Borges APRN [Primary Care Provider] - - Critical Care Critical Care Time: No Attestation: On 11/26/19, the high probability of a clinically significant, sudden or life threatening deterioration of the following system(s) required my full and direct attention, intervention and personal management. The time I documented below is in addition to time spent performing reported procedures but includes the following listed in this critical care notation. Medical Decision Making - Medical Records Medical records reviewed: Yes: I reviewed the patient's medical records. - [facility]yman Inquiry Pt receiving controlled substance: No Vital Signs: 11/26/19 12:36 11/26/19 13:03 11/26/19 13:04 Temperature 98.7 F Temperature Source Oral Pulse Rate [Left Radial] 90 90 95 H Respiratory Rate 16 Blood Pressure [Right Arm] 101/80 L 106/43 L 115/56 L Blood Pressure Mean [Right Arm] 87 64 75 Blood Pressure Position [Right Arm] Sitting Supine Standing 02 Sat by Pulse Oximetry 97 Oxygen Delivery Method Room Air - Lab Data Lab results reviewed: Yes: I reviewed the patient's lab results. Lab Results 11/26/19 12:55: WBC 8.2, RBC 3.76 L, Hgb 12.4, Hct 37.0, MCV 98.4, MCH 32.9 H, MCHC 33.4, RDW 14.5, Plt Count 350, MPV 8.4, Neut % (Auto) 66.0, Lymph % (Auto) 27.7, [place] % (Auto) 3.2, Eos % (Auto) 2.5, Baso % (Auto) 0.6, Neut # (Auto) 5.4, Lymph # (Auto) 2.3, [place] # (Auto) 0.3, Eos # (Auto) 0.2, Baso # (Auto) 0.1 11/26/19 12:55: Sodium 141, Potassium 3.9, Chloride 110 H, Carbon Dioxide 20 L, Anion Gap 14.9, BUN 17, Creatinine 1.10 H, Estimated Creat Clear 76, Estimated GFR 53 L, Est GFR ( Amer) 64, Glucose 106 H, Calcium 9.6, Total Bilirubin 0.2, AST 23, ALT 19, Alkaline Phosphatase 62, Troponin I < 0.01, Total Protein 7.4, Albumin 4.5, Globulin 2.9, Albumin/Globulin Ratio 1.6 Result diagrams: 11/26/19 12:55 11/26/19 12:55 Orders (Tests/Meds): ED MEDICATIONS Generic Name Dose Route Start Last Admin Trade Name Freq PRN Reason Stop Dose Admin Sodium Chloride 1,000 mls @ 999 mls/hr 11/26/19 13:30 11/26/19 13:41 Sod Chlor 0.9% 1000ml Bag IV 11/26/19 14:30 999 mls/hr .Q1H1M MENG Administration ORDERS Category Date Time Status Troponin I Q3H Lab 11/26/19 16:15 Ordered Troponin I Q3H Lab 11/26/19 19:15 Ordered UDS [Drug Screen,Urine] Stat Lab 11/26/19 14:03 Ordered Urinalysis and Microscopic Stat Lab 11/26/19 13:10 Ordered - Radiology Data #1 Image(s): Chest Preliminary Findings: Abnormal (Developing left lower lobe pneumonia) - ECG Data Tracing #1 I reviewed this ECG and interpreted as documented below: Normal Sinus Rhythm: Yes Syncope HPI - General Chief Complaint: Syncope Stated Complaint: passed at 0730 temp loss of memory Time Seen by Provider: 11/26/19 14:20 Mode of Arrival: Ambulatory Source of Information: Patient Limitations: No Limitations Description of Symptoms (Recalled from ER Triage Doc. by RN): to ed per pvt car with c/o syncopal episode today pt states she was sitting at a table and passed out
[2019-11-26 14:32] LABS: Microscopic, Urine URINE MICROSCOPIC (MICROSCOPIC)
[2019-11-26 14:33] LABS: Appearance,Urine CLEAR (Clear); Bilirubin,Urine Negative (Negative); Blood, Urine Negative (Negative); Color,Urine YELLOW (Yellow); Glucose,Urine (UA) Negative (Negative); Ketones,Urine Negative (Negative); Leukocyte Esterase,Urine TRACE (Negative); Nitrate,Urine Negative (Negative); Protein,Urine Negative (Negative); Urobilinogen,Urine 0.2 EU/dl (0.2)
[2019-11-26 14:47] VITALS: BP 123/65; PULSE 87; RESP 16; TEMP 36.6; O2SAT 98
[2019-11-26 14:48] LABS: Barbiturates Screen,Urine Negative ng/ml (<200)
[2019-11-26 14:49] LABS: Benzodiazepines Screen,Urine Negative ng/ml (<200)
[2019-11-26 14:50] LABS: Methadone Screen,Urine Negative ng/ml (<300)
[2019-11-26 14:51] LABS: Cannabinoid Screen,Urine Positive ng/ml (<50)
[2019-11-26 14:52] LABS: Bacteria,Urine 2+ /lpf; Cocaine Screen,Urine Negative ng/ml (<300); Mucus,Urine Trace /lpf; Opiate Screen,Urine Negative ng/ml (<300)
[2019-11-26 14:53] LABS: Phencyclidine Screen,Urine Negative ng/ml (<25)
[2019-11-30 07:07] LABS: Amphetamine Positive (.); Amphetamines Positive (.); Methamphetamine Positive (.)
[2019-11-30 07:22] LABS: Amphetamine (GC/MS) 1438 ng/mL (Cutoff=500); Methamphetamine (GC/MS) >4000 ng/mL (Cutoff=500)
== END 2019-11-26 14:49 | disposition home or self-care (01) ==
PROVIDERS: Emergency Provider Family Medicine; PCP Nurse Practitioner
DX: R55 Syncope and collapse (principal); J18.9 Pneumonia, unspecified organism; F33.1 Major depressive disorder, recurrent, moderate; K21.9 Gastro-esophageal reflux disease without esophagitis; I10 Essential (primary) hypertension; J45.909 Unspecified asthma, uncomplicated; F17.210 Nicotine dependence, cigarettes, uncomplicated; F12.10 Cannabis abuse, uncomplicated; Z79.899 Other long term (current) drug therapy; Z88.1 Allergy status to other antibiotic agents; Z88.8 Allergy status to other drugs, medicaments and biological substances
CPT/HCPCS: 70450; 71045; 80053; 80305; 80324; 81001; 84484; 85025; 87086; 93005; 96365; 99284

== ENCOUNTER 2020-08-04 19:09 | Emergency (ER) | payer OTHER, SELFPAY ==
[2020-08-04 19:09] VITALS: BP 156/101; PULSE 102; RESP 14; TEMP 36.4; O2SAT 97; BMI 31.2
--- NOTE | 2020-08-04 19:27 | HMH.EDUTC ---
[facility] [place] Disposition Clinical Impression: Exposure to COVID-19 virus Disposition: Home, Self-Care Condition on Discharge: Good Instructions: DI for COVID-19 (Suspected or Confirmed ), Preventing the Spread of Coronavirus Discharge Instructions Additional Instructions: Drink plenty of fluids. Take tylenol or ibuprofen for pain or fever. Take the medications as directed. Follow up with your regular doctor. GO TO THE ER FOR ANY WORSENING SYMPTOMS Prescriptions: Ondansetron [Zofran 4mg ODT] 4 mg PO Q8HP PRN #12 tab.rapdis PRN Reason: Nausea Transmission Status: Received by [facility] Referrals: Rhianna Borges APRN [Primary Care Provider] - Time of Disposition: 19:33 Medical Decision Making - Medical Records Medical records reviewed: No: I reviewed the patient's medical records. - Peyman Inquiry Pt receiving controlled substance: No Vital Signs: 08/04/20 19:09 08/04/20 19:34 Temperature 97.6 F 97.6 F Temperature Source Oral Oral Pulse Rate 102 H Pulse Rate [Right] 102 H Respiratory Rate 14 14 Blood Pressure 156/101 H Blood Pressure [Right Arm] 156/101 H Blood Pressure Mean [Right Arm] 119 02 Sat by Pulse Oximetry 97 Oxygen Delivery Method Room Air [facility] [place] HPI - General Stated complaint: COVID Test Exposed Time Seen by Provider: 08/04/20 19:28 - History of Present Illness Provider Complaint: She states that her friend came to see her, then turned out to have covid-19. She denies any symptoms. Her exposure occured 4 days ago. She is helping to take care of her sick father after he had a surgery, so she doesn't want to pack Covid in to him. - Related Data Home Medications Medication Instructions Recorded Confirmed propranolol 80 mg capsule,extended 80 mg PO DAILY 01/16/18 11/26/19 release 24 hr Ipratropium/Albuterol Sulfate 2 sprays INHALATION BID 09/10/18 11/26/19 [Combivent Respimat Inh] Omeprazole [Omeprazole 20mg 20 mg PO DAILY 09/10/18 11/26/19 Capsule] gabapentin 600 mg tablet 600 mg PO TID 09/20/18 11/26/19 Albuterol Sulfate [Ventolin HFA 1 - 2 puffs IH Q4-6H PRN 09/16/19 11/26/19 Inhaler] Almotriptan Malate 12.5 mg PO DIRECTED 09/16/19 11/26/19 Amitriptyline HCl 75 mg PO HS 09/16/19 11/26/19 Topiramate 1 tab PO DAILY 09/16/19 11/26/19 Amlodipine Besylate [Amlodipine 5 mg PO DAILY 09/17/19 11/26/19 5mg tab] Fluoxetine HCl 60 mg PO DAILY 09/17/19 11/26/19 Previous Rx's Medication Instructions Recorded Azithromycin [Z-Noam 250mg Tab*] 250 mg PO UD DOSE PK #6 tab 11/26/19 Cefdinir [Omnicef 300mg Capsule] 300 mg PO BID #20 cap 11/26/19 Ondansetron [Zofran 4mg ODT] 4 mg PO Q8HP PRN #12 tab.rapdis 08/04/20 Allergies Allergy/AdvReac Type Severity Reaction Status Date / Time levofloxacin [From Levaquin] AdvReac Intermediate mouth sores Verified 08/04/20 19:28 sumatriptan [From Imitrex] AdvReac Mild Vomiting Verified 08/04/20 19:28 [facility] [place] History - Hepatitis A Screen Attestation statement:: This patient has been screened for Hepatitis A risk factors. I have reviewed the patient's past medical history: Yes Medical History: Reports:: Asthma, Depression, Gastroesophageal Reflux Disease(GERD), Hepatitis, Hypertension Denies:: Cancer, Diabetes Mellitus Type 1, Diabetes Mellitus Type 2, Internal Pacemaker, MRSA, Seizures Other Medical History: Denies: Blood Transfusion Reaction Laterality Cases: Bilateral: Tonsillectomy Other Surgeries: Yes: Cholecystectomy, Hysterectomy-Total, Tubal Ligation. No: Pacemaker Amputation: No Fractures: No - Social History Smoking Status: Current every day smoker Tobacco Type: cigarettes # Packs/Day (cigarettes): 1 Alcohol Intake: never Alcohol Intake Frequency:: other Substance Use Type: marijuana Occupational Status: other Housing: other Household Members: other - Psychiatric History Pschychiatric History:: Reports:: Depression Family Hx:: Diabetes, Cancer ROS [place]
[2020-08-04 19:34] VITALS: BP 156/101; PULSE 102; RESP 14; TEMP 36.4; O2SAT 97
== END 2020-08-04 19:38 | disposition home or self-care (01) ==
PROVIDERS: Emergency Provider Nurse Practitioner Family; PCP Nurse Practitioner
DX: Z20.822 Contact with and (suspected) exposure to COVID-19 (principal); K21.9 Gastro-esophageal reflux disease without esophagitis; I10 Essential (primary) hypertension; F33.1 Major depressive disorder, recurrent, moderate; J45.909 Unspecified asthma, uncomplicated; F17.210 Nicotine dependence, cigarettes, uncomplicated; Z79.899 Other long term (current) drug therapy
CPT/HCPCS: 99202; G0463; U0003

== ENCOUNTER 2023-09-20 18:52 | Emergency (ER) | payer OTHER, SELFPAY ==
[2023-09-20 18:54] VITALS: BP 177/115; PULSE 136; RESP 20; TEMP 36.6; O2SAT 99; BMI 26.7
--- NOTE | 2023-09-20 19:08 | PC.NURSE ---
PA made aware of elevated BP and heart rate.
--- NOTE | 2023-09-20 19:10 | HMH.EDGENADL ---
Discharge Plan Disposition Patient Disposition: Home, Self-Care Condition: Good Prescriptions Prescriptions: No Action gabapentin 600 mg tablet 600 mg PO TID propranolol 80 mg capsule,extended release 24hr 80 mg PO DAILY albuterol sulfate 18 GM HFA aerosol inhaler 1 - 2 puffs IH Q4-6H PRN (Reason: Shortness Of Breath Or Wheezing) topiramate 50 tablet 1 tab PO DAILY amitriptyline 75 MG tablet 75 mg PO HS almotriptan malate 12.5 MG tablet 12.5 mg PO DIRECTED Rx Instructions: TAKE 12.5 MG AT ONSET OF HEADACHE. MAY REPEAT ONCE IN 2 HOURS FOR A MAX OF 25 MG IN 24 HOURS amlodipine 5 MG tablet 5 mg PO DAILY fluoxetine 20 MG capsule 60 mg PO DAILY ondansetron 4 MG tablet,disintegrating 4 mg PO Q8HP PRN (Reason: Nausea) Qty: 12 0RF omeprazole 20 capsule,delayed release(DR/EC) 20 mg PO DAILY ipratropium-albuterol 0 mist 2 sprays INHALATION BID cefdinir 300 MG capsule 300 mg PO BID Qty: 20 0RF azithromycin 250 MG tablet 250 mg PO UD DOSE PK Qty: 6 0RF Rx Instructions: Take two (2) tablets today, then one (1) tablet days #2 thru #5 Referrals Follow up/Referrals: Rhianna Borges APRN [Primary Care Provider] - See instructions Activity Restrictions/Add. Instructions Additional Instructions/Restrictions: Please keep wound clean dry and covered with a nonocclusive dressing. Do not put anything moist or wet on the wound such as Neosporin. Wash with soap and water. Please return in 7 to 10 days for suture removal. Return immediately if there is any redness erythema edema drainage increasing pain. Clinical Impressions Clinical Impression: Finger laceration Qualifiers: Encounter type: initial encounter Finger: little finger Damage to nail status: without damage Foreign body presence: without foreign body Laterality: right Qualified Code(s): S61.216A - Laceration without foreign body of right little finger without damage to nail, initial encounter Instructions Patient Instructions: DI for Laceration Repair Discharge ED Provider: Aura Lemos General Adult HPI <VALERIA Wood - Last Filed: 09/20/23 23:19> General Chief complaint: Wound/Laceration Stated complaint: [id number] RT finger pinky lac Time Seen by Provider: 09/20/23 19:10 Mode of Arrival: Ambulatory Source of Information: Patient Limitations: No Limitations Description of Symptoms (Recalled from ER Triage Doc. by RN): Patient reports she was washing dishes and cut her pinkie finger on her right hand. Bleeding controlled upon arrival to ED. Small laceration noted to right pinkie finger. History of Present Illness HPI narrative: Patient presents after suffering a laceration at home with a knife while she was washing it. The laceration is the lateral aspect of the distal fifth digit of right hand that does not involve the nail. She is right-hand dominant. Related Data Home Medications Medication Instructions Recorded Confirmed propranolol 80 mg capsule,extended 80 mg PO DAILY Hypertension 01/16/18 11/26/19 release 24 hr ipratropium 20 mcg-albuterol 100 2 sprays INHALATION BID COPD 09/10/18 11/26/19 mcg/actuation mist for inhalation omeprazole 20 mg capsule,delayed 20 mg PO DAILY Heartburn 09/10/18 11/26/19 release gabapentin 600 mg tablet 600 mg PO TID Pain 09/20/18 11/26/19 albuterol sulfate 90 mcg/actuation 1 - 2 puffs IH Q4-6H PRN Shortness 09/16/19 11/26/19 aerosol inhaler Of Breath Or Wheezing almotriptan malate 12.5 mg tablet 12.5 mg PO DIRECTED migraines 09/16/19 11/26/19 amitriptyline 75 mg tablet 75 mg PO HS Anxiety 09/16/19 11/26/19 topiramate 50 mg tablet 1 tab PO DAILY HEADACHES 09/16/19 11/26/19 amlodipine 5 mg tablet 5 mg PO DAILY Hypertension 09/17/19 11/26/19 fluoxetine 20 mg capsule 60 mg PO DAILY Anxiety 09/17/19 11/26/19 Previous Rx's Medication Instructions Recorded azithromycin 250 mg tablet 250 mg PO UD DOSE PK Infection #6 11/26/19 tabs cefdinir 300 mg capsule 300 mg PO BID #20 caps 11/26/19 ondansetron 4 mg disintegrating 4 mg PO Q8HP PRN Nausea ##12 08/04/20 tablet Allergies Allergy/AdvReac Type Severity Reaction Status Date / Time levofloxacin [From Levaquin] AdvReac Intermediate mouth sores Verified 08/04/20 19:28 sumatriptan [From Imitrex] AdvReac Mild Vomiting Verified 08/04/20 19:28 PFSH <VALERIA Wood - Last Filed: 09/20/23 23:19> [facility] Disclaimer: The information contained in this section may have been updated after the patient was seen, as this information can be updated by other users. Social History Smoking Status: Current every day smoker tobacco type: cigarettes packs per day: 1 second hand exposure: Yes alcohol intake: never substance use type: marijuana current occupational status: other Travel in the last 8 weeks: None household members: other housing: other caffeine: Yes <VALERIA Wood Last Filed: 09/20/23 23:19> ROS Obtained: Yes Systems reviewed as appropriate & no additional complaints except as documented Physical Exam <VALERIA Wood Last Filed: 09/20/23 23:19> General General appearance: alert and in no apparent distress Respiratory Respiratory exam: Present normal lung sounds bilaterally Cardiovascular Cardiovascular exam: Present regular rate and normal rhythm Abdominal Exam Abdominal exam: Present soft; Absent tenderness, guarding or rebound Extremities Exam Extremities exam: Present normal inspection and full ROM Neurological Exam Neurological exam: Present alert and oriented X3 Psychiatric Psychiatric exam: Present normal affect and normal mood Skin Skin exam: Present warm, dry, normal color and other (With the exception of the lateral aspect of the distal right pinky finger that has a semicircular laceration sparing the nailbed. Patient is neurovascular intact distally the remainder of the skin exam is performed) Medical Decision Making <VALERIA Wood Last Filed: 09/20/23 23:19> Medical Records Medical records reviewed: Yes I reviewed the patient's medical records. [facility] Inquiry Pt receiving controlled substance: No Vital Signs: 09/20/23 18:54 09/20/23 20:21 Temperature 97.9 F 98.1 F Temperature Source Oral Pulse Rate 102 H Pulse Rate [Right] 136 H Respiratory Rate 20 18 Blood Pressure 168/74 H Blood Pressure [Right Arm] 177/115 H Blood Pressure Mean [Right Arm] 135 Blood Pressure Source Automatic Cuff Blood Pressure Source [Right Arm] Automatic Cuff Blood Pressure Position Sitting 02 Sat by Pulse Oximetry 99 Lab Data Lab results reviewed: Yes I reviewed the patient's lab results. Orders (Tests/Meds): ED MEDICATIONS Discontinued Medications Generic Name Dose Route Start Last Admin Trade Name Freq PRN Reason Stop Dose Admin Lidocaine HCl 10 ml 09/20/23 19:17 09/20/23 19:28 Lidocaine 1% 10ml Mdv SQ 09/20/23 19:18 10 ml ONCE ONE Administration Medical Decision Narrative: In summary patient is a 52-year-old male who presents to the emergency department for evaluation of laceration to her right fifth finger. Patient is hemodynamically stable and afebrile. Physical exam shows laceration at the lateral aspect of the right fifth finger sparing the nailbed. Laceration travels from dorsum to palmar surface laterally. Full range of motion no loss of sensation or tendon. Patient has normal flexion extension. Transient includes simple laceration versus possible nerve involvement versus tendon involvement. Invention is a digital finger block. Please see procedure note for details. After suture placement patient was appropriate for discharge. Patient had a Tdap that is up-to-date. Subsequently she was discharged home with instructions to follow-up in 5 to 7 days for suture removal. <Aura Lemos MD - Last Filed: 09/20/23 23:46> Vital Signs: 09/20/23 18:54 09/20/23 20:21 Temperature 97.9 F 98.1 F Temperature Source Oral Pulse Rate 102 H Pulse Rate [Right] 136 H Respiratory Rate 20 18 Blood Pressure 168/74 H Blood Pressure [Right Arm] 177/115 H Blood Pressure Mean [Right Arm] 135 Blood Pressure Source Automatic Cuff Blood Pressure Source [Right Arm] Automatic Cuff Blood Pressure Position Sitting 02 Sat by Pulse Oximetry 99 Orders (Tests/Meds): ED MEDICATIONS Discontinued Medications Generic Name Dose Route Start Last Admin Trade Name Freq PRN Reason Stop Dose Admin Lidocaine HCl 10 ml 09/20/23 19:17 09/20/23 19:28 Lidocaine 1% 10ml Mdv SQ 09/20/23 19:18 10 ml ONCE ONE Administration Medical Decision Narrative: In summary patient is a 52-year-old male who presents to the emergency department for evaluation of laceration to her right fifth finger. Patient is hemodynamically stable and afebrile. Physical exam shows laceration at the lateral aspect of the right fifth finger sparing the nailbed. Laceration travels from dorsum to palmar surface laterally. Full range of motion no loss of sensation or tendon. Patient has normal flexion extension. Transient includes simple laceration versus possible nerve involvement versus tendon involvement. Invention is a digital finger block. Please see procedure note for details. After suture placement patient was appropriate for discharge. Patient had a Tdap that is up-to-date. Subsequently she was discharged home with instructions to follow-up in 5 to 7 days for suture removal. I was consulted by the ALAN, and we discussed the complexity of the problems being addressed. I approved the treatment and management plan for this patient's care in the Emergency Department, thus performing a substantive portion of the medical decision making. Aura Lemos MD Procedures <VALERIA Wood - Last Filed: 09/20/23 23:19> Laceration Laceration 1: Site: finger Side (If applicable): right Size (cm): 1 Description: clean and other (Scalloped/filleted) Depth: simple, single layer Local Anesthetic: lidocaine 1% Amount of anesthesia used (mL): 20 Pre-repair: wound explored, irrigated extensively and deep structures intact Skin layer closed with: nylon Size (cm): 4-0 Number of sutures: 3 Technique: simple, interrupted Critical Care <VALERIA Wood - Last Filed: 09/20/23 23:19> Critical Care Time Critical Care Time: No
--- NOTE | 2023-09-20 19:22 | PC.NURSE ---
rounded on patient, no needs at this time
[2023-09-20] MEDS: LIDOCAINE 1% 10ML MDV 10 ML SQ (19:28)
[2023-09-20 20:21] VITALS: BP 168/74; PULSE 102; RESP 18; TEMP 36.7; O2SAT 98
== END 2023-09-20 20:21 | disposition home or self-care (01) ==
PROVIDERS: Emergency Provider Emergency Medicine; PCP Nurse Practitioner
DX: S61.216A Laceration without foreign body of right little finger without damage to nail, initial encounter (principal); F17.210 Nicotine dependence, cigarettes, uncomplicated; W26.0XXA Contact with knife, initial encounter
CPT/HCPCS: 12001; 99282

== ENCOUNTER 2023-10-03 13:00 | Emergency (ER) | payer OTHER, SELFPAY ==
[2023-10-03 13:00] VITALS: BP 176/93; PULSE 88; RESP 18; TEMP 36.7; O2SAT 98; BMI 26.5
[2023-10-03 13:10] VITALS: BP 176/93; PULSE 88; RESP 18; TEMP 36.7; O2SAT 98
== END 2023-10-03 13:12 | disposition home or self-care (01) ==
PROVIDERS: Emergency Provider Nurse Practitioner; PCP Nurse Practitioner Family
DX: Z48.02 Encounter for removal of sutures (principal)